=== PATIENT | female | born 1930 | race Caucasian/White ===

== ENCOUNTER 2017-03-10 15:15 | Emergency (ER) | payer MEDICARE, BC ==
[2017-03-10 15:43] VITALS: RESP 16; TEMP 98.3
[2017-03-10] MEDS ORDERED: SODIUM CHLORIDE 0.9% 1,000 ML IV STA (16:21)
--- NOTE | 2017-03-10 16:24 | ED ---
General Adult HPI <Valentino Hoffman - Last Filed: 03/10/17 18:16> - General Source: patient, RN notes reviewed Mode of arrival: ambulatory Limitations: no limitations <Everette Emanuel - Last Filed: 03/10/17 18:19> - General Chief complaint: Upper Respiratory Infection Stated complaint: Coughing with blood Time Seen by Provider: 03/10/17 16:09 - History of Present Illness Initial comments: Patient 86-year-old female who presents emergency room today with chief complaint of hemoptysis times one day. She does admit that late last night laying down in bed reading she began having a slight cough noted that she had some blood-tinged sputum. States there is a dark color and then a hand knitter color. States it happened hand. Times. States she did not sleep very well but was able to fall sleep. She states that she was doing well this morning until approximate 9:30 had another episode of coughing which did produce some blood tinged sputum. They shouldn't admits that she did call her doctor's office and the nurse there advised to come here to the emergency room. Patient states she did not have any other symptoms. She denies taking any medications at home. Patient denies any recent fever, chills, shortness of breath, chest pain, back pain, abdominal pain, nausea or vomiting, numbness or tingling, dysuria or hematuria, constipation or diarrhea, headaches or visual changes, or any other complaints. (Everette Emanuel) - Related Data Home Medications Medication Instructions Recorded Confirmed Multivits-Min/Iron/FA/Lutein 1 tab PO DAILY 03/10/17 03/10/17 [Centrum Silver Women Tablet] Allergies Allergy/AdvReac Type Severity Reaction Status Date / Time amoxicillin Allergy Unknown Verified 03/10/17 16:51 ciprofloxacin [From Cipro] Allergy Unknown Verified 03/10/17 16:51 nitrofurantoin Allergy Unknown Verified 03/10/17 16:51 [From Macrobid] sulfamethoxazole Allergy Unknown Verified 03/10/17 16:51 [From Bactrim] trimethoprim [From Bactrim] Allergy Unknown Verified 03/10/17 16:51 Review of Systems ROS Other: All systems not noted in ROS Statement are negative. <Valentino Hoffman - Last Filed: 03/10/17 18:16> ROS Other: All systems not noted in ROS Statement are negative. <Everette Emanuel - Last Filed: 03/10/17 18:19> ROS Statement: Those systems with pertinent positive or pertinent negative responses have been documented in the HPI. Past Medical History Past Medical History: No Reported History History of Any Multi-Drug Resistant Organisms: None Reported Past Surgical History: Hysterectomy, Tonsillectomy Additional Past Surgical History / Comment(s): cataract removal Past Psychological History: No Psychological Hx Reported Smoking Status: Former smoker Past Alcohol Use History: Occasional Past Drug Use History: None Reported <Everette Emanuel - Last Filed: 03/10/17 18:19> General Exam <Valentino Hoffman - Last Filed: 03/10/17 18:16> Limitations: no limitations <Everette Emanuel - Last Filed: 03/10/17 18:19> - General Exam Comments Initial Comments: General: The patient is awake and alert, in no distress, and does not appear acutely ill. Eye: Pupils are equal, round and reactive to light, extra-ocular movements are intact. No nystagmus. There is normal conjunctiva bilaterally. No signs of icterus. Ears, nose, mouth and throat: There are moist mucous membranes and no oral lesions. Neck: The neck is supple, there is no tenderness or JVD. Cardiovascular: There is a regular rate and rhythm. No murmur, rub or gallop is appreciated. Respiratory: Lungs are clear to auscultation, respirations are non-labored, breath sounds are equal. No wheezes, stridor, rales, or rhonchi. Gastrointestinal: Soft, non-distended, non-tender abdomen without masses or organomegaly noted. There is no rebound or guarding present. No CVA tenderness. Bowel sounds are unremarkable. Musculoskeletal: Normal ROM, no tenderness. Strength 5/5. Sensation intact. Pulses equal bilaterally 2+. Neurological: A&O x 3. CN II-XII intact, There are no obvious motor or sensory deficits. Coordination appears grossly intact. Speech is normal. Skin: Skin is warm and dry and no rashes or lesions are noted. Psychiatric: Cooperative, appropriate mood & affect, normal judgment. (Everette Emanuel) Course <Valentino Hoffman - Last Filed: 03/10/17 18:16> <Everette Emanuel - Last Filed: 03/10/17 18:19> Vital Signs 03/10/17 03/10/17 15:39 16:49 Temperature 98.3 F Pulse Rate 103 H 81 Respiratory 16 16 Rate Blood Pressure 187/106 173/87 O2 Sat by Pulse 96 95 Oximetry - Reevaluation(s) Reevaluation #1: 03/10/17 18:16 I did personally do a [id number] evaluation the patient did discuss findings with her and her family. The x-rays and lab work are unremarkable. Patient does have prior history of episodes of hemoptysis 15 years ago. She related this medication she had used. She denies any current fevers chills nausea vomiting sweats examination of lungs revealed clear lung sounds. Heart regular with no evidence of any murmurs at this time no chest wall tenderness palpation x-rays are negative for acute findings. Patient is referred back to her physician for further evaluation. (Valentino Hoffman) Medical Decision Making - Lab Data Result diagrams: 03/10/17 16:19 03/10/17 16:19 <Valentino Hoffman - Last Filed: 03/10/17 18:16> - Lab Data Result diagrams: 03/10/17 16:19 03/10/17 16:19 <Everette Emanuel - Last Filed: 03/10/17 18:19> - Medical Decision Making Patient reexamined at this time shows no signs of distress. Patient's labs reviewed unremarkable. Negative d-dimer. EKG shows normal sinus rhythm. Patient's labs reviewed and was seen at bedside by attending physician Dr. Hoffman. Patient will be discharged home advised follow-up the family doctor in the next 1-2 days. Advised return if any symptoms increase or worsen or for any other concerns. (Everette Emanuel) - Lab Data Lab Results 03/10/17 03/10/17 03/10/17 Range/Units 16:19 16:19 16:19 WBC 7.5 (3.8-10.6) k/uL RBC 4.96 (3.80-5.40) m/uL Hgb 15.2 (11.4-16.0) gm/dL Hct 45.6 (34.0-46.0) % MCV 92.0 (80.0-100.0) fL MCH 30.6 (25.0-35.0) pg MCHC 33.3 (31.0-37.0) g/dL RDW 14.3 (11.5-15.5) % Plt Count 199 (150-450) k/uL Neutrophils % 74 % Lymphocytes % 15 % Monocytes % 6 % Eosinophils % 1 % Basophils % 1 % Neutrophils # 5.6 (1.3-7.7) k/uL Lymphocytes # 1.1 (1.0-4.8) k/uL Monocytes # 0.5 (0-1.0) k/uL Eosinophils # 0.1 (0-0.7) k/uL Basophils # 0.1 (0-0.2) k/uL PT 10.1 (9.0-12.0) sec INR 1.0 (<1.1) APTT 24.3 (22.0-30.0) sec D-Dimer 0.42 (<0.60) mg/L FEU Sodium 139 (137-145) mmol/L Potassium 4.0 (3.5-5.1) mmol/L Chloride 103 (98-107) mmol/L Carbon Dioxide 25 (22-30) mmol/L Anion Gap 11 mmol/L BUN 19 H (7-17) mg/dL Creatinine 0.80 (0.52-1.04) mg/dL Est GFR (MDRD) Af Amer >60 (>60 ml/min/1.73 sqM) Est GFR (MDRD) Non-Af >60 (>60 ml/min/1.73 sqM) Glucose 102 H (74-99) mg/dL Calcium 10.6 H (8.4-10.2) mg/dL Total Bilirubin 0.6 (0.2-1.3) mg/dL AST 26 (14-36) U/L ALT 30 (9-52) U/L Alkaline Phosphatase 109 (38-126) U/L Total Protein 8.0 (6.3-8.2) g/dL Albumin 4.8 (3.5-5.0) g/dL Urine Color Urine Appearance (Clear) Urine pH (5.0-8.0) Ur Specific Wilson (1.001-1.035) Urine Protein (Negative) Urine Glucose (UA) (Negative) Urine Ketones (Negative) Urine Blood (Negative) Urine Nitrite (Negative) Urine Bilirubin (Negative) Urine Urobilinogen (<2.0) mg/dL Ur Leukocyte Esterase (Negative) Urine RBC (0-5) /hpf 03/10/17 Range/Units 16:19 WBC (3.8-10.6) k/uL RBC (3.80-5.40) m/uL Hgb (11.4-16.0) gm/dL Hct (34.0-46.0) % MCV (80.0-100.0) fL MCH (25.0-35.0) pg MCHC (31.0-37.0) g/dL RDW (11.5-15.5) % Plt Count (150-450) k/uL Neutrophils % % Lymphocytes % % Monocytes % % Eosinophils % % Basophils % % Neutrophils # (1.3-7.7) k/uL Lymphocytes # (1.0-4.8) k/uL Monocytes # (0-1.0) k/uL Eosinophils # (0-0.7) k/uL Basophils # (0-0.2) k/uL PT (9.0-12.0) sec INR (<1.1) APTT (22.0-30.0) sec D-Dimer (<0.60) mg/L FEU Sodium (137-145) mmol/L Potassium (3.5-5.1) mmol/L Chloride (98-107) mmol/L Carbon Dioxide (22-30) mmol/L Anion Gap mmol/L BUN (7-17) mg/dL Creatinine (0.52-1.04) mg/dL Est GFR (MDRD) Af Amer (>60 ml/min/1.73 sqM) Est GFR (MDRD) Non-Af (>60 ml/min/1.73 sqM) Glucose (74-99) mg/dL Calcium (8.4-10.2) mg/dL Total Bilirubin (0.2-1.3) mg/dL AST (14-36) U/L ALT (9-52) U/L Alkaline Phosphatase (38-126) U/L Total Protein (6.3-8.2) g/dL Albumin (3.5-5.0) g/dL Urine Color Light Yellow Urine Appearance Clear (Clear) Urine pH 6.0 (5.0-8.0) Ur Specific Wilson 1.009 (1.001-1.035) Urine Protein Negative (Negative) Urine Glucose (UA) Negative (Negative) Urine Ketones Negative (Negative) Urine Blood Small H (Negative) Urine Nitrite Negative (Negative) Urine Bilirubin Negative (Negative) Urine Urobilinogen <2.0 (<2.0) mg/dL Ur Leukocyte Esterase Negative (Negative) Urine RBC 7 H (0-5) /hpf Disposition <Valentino Hoffman - Last Filed: 03/10/17 18:16> Time of Disposition: 18:19 <Everette Emanuel - Last Filed: 03/10/17 18:19> Clinical Impression: Hemoptysis, Hemoptysis, unspecified Disposition: HOME SELF-CARE Condition: Good Instructions: Hemoptysis (ED) Additional Instructions: Please follow-up the family doctor in the next 1-2 days. Please return to emergency room if any symptoms increase or worsen or for any other concerns as discussed.
[2017-03-10 16:39] LABS: Appearance,Urine Clear (Clear); Basophils # (A) 0.1 k/uL (0-0.2); Basophils % (A) 1 %; Bilirubin,Urine Negative (Negative); CHCM 33.9; Eosinophils # (A) 0.1 k/uL (0-0.7); Eosinophils % (A) 1 %; Glucose,Urine (UA) Negative (Negative); HCT 45.6 % (34.0-46.0); HDW 2.35; HGB 15.2 gm/dL (11.4-16.0); Ketones,Urine Negative (Negative); Leukocyte Esterase,Urine Negative (Negative); Luc # (Auto) 0.21; Luc % (Auto) 3; Lymphocytes # (A) 1.1 k/uL (1.0-4.8); Lymphocytes % (A) 15 %; MCH 30.6 pg (25.0-35.0); MCHC 33.3 g/dL (31.0-37.0); Mean Platelet Volume 8.2; Monocytes # (A) 0.5 k/uL (0-1.0); Monocytes % (A) 6 %; Neutrophils # (A) 5.6 k/uL (1.3-7.7); Neutrophils % (A) 74 %; Nitrite,Urine Negative (Negative); Particle Count 264; Protein,Urine Negative (Negative); RBC 4.96 m/uL (3.80-5.40); RBC,Urine 7 /hpf (0-5); RDW 14.3 % (11.5-15.5); Specific Gravity,Urine 1.009 (1.001-1.035); UA Billing (MACRO vs. MICRO) MICRO; Urobilinogen,Urine <2.0 mg/dL (<2.0); WBC 7.5 k/uL (3.8-10.6); WBC (Perox) 7.63
[2017-03-10 16:51] LABS: ALT 30 U/L (9-52); AST 26 U/L (14-36); Alkaline Phosphatase 109 U/L (38-126); Anion Gap 11 mmol/L; Blood Urea Nitrogen 19 mg/dL (7-17); Calcium 10.6 mg/dL (8.4-10.2); Carbon Dioxide 25 mmol/L (22-30); Chloride 103 mmol/L (98-107); Glucose 102 mg/dL (74-99); Non-African American GFR(MDRD) >60 (>60 ml/min/1.73 sqM); Sodium 139 mmol/L (137-145); Total Bilirubin 0.6 mg/dL (0.2-1.3)
[2017-03-10 16:56] LABS: Partial Thromboplastin Time 24.3 sec (22.0-30.0); Prothrombin Time 10.1 sec (9.0-12.0)
--- NOTE | 2017-03-10 17:08 | XR ---
EXAMINATION TYPE: XR chest 2V DATE OF EXAM: 03/10/2017 5:02 PM COMPARISON: NONE HISTORY: Coughing up blood TECHNIQUE: Frontal and lateral views of the chest are obtained. FINDINGS: Heart is normal. Thoracic aorta is atheromatous. There is slight thickening of the right m inor fissure. There are no hilar masses. There is no pleural effusion. Bones are osteopenic. There ar e chest leads. IMPRESSION: Minimal right-sided pleural thickening. Normal heart. No pulmonary consolidation or hear t failure.
[2017-03-10 18:34] VITALS: BP 179/79; PULSE 74
== END 2017-03-10 18:34 | disposition home or self-care (01) ==
LOC: EC 15:15
DX: R04.2 Hemoptysis (principal); Z87.891 Personal history of nicotine dependence; Z79.899 Other long term (current) drug therapy; Z88.0 Allergy status to penicillin; Z88.1 Allergy status to other antibiotic agents; Z88.2 Allergy status to sulfonamides; Z88.8 Allergy status to other drugs, medicaments and biological substances
CPT/HCPCS: 36415; 71020; 80053; 81001; 85025; 85379; 85610; 85730; 93005; 96360; 96361; 99283

== ENCOUNTER → 2017-04-04 | Outpatient (CLI) | payer MEDICARE, BC ==
--- NOTE | 2017-04-04 12:06 | ECHOS ---
DATE OF SERVICE: 04/04/2017 AGE: 86Y SEX: F HT: 64" WT: 120 lbs. Protocol Mitchell: X Others: Stress Echo Stage: 1 Dur. of Exercise: 2:30 *Heart Rate Blood Pressure *Rest: 103 Rest: 143/78 * *Max. Achieved: 131 Maximum BP: 171/95 85% PMHR: 116 100% PMHR: 136 *METS: 4.0 INDICATIONS: Chest pain. MEDICATIONS: - STRESS DATA: Pretesting physical examination showed a heart rate of 103, pressure is 143/78 mmHg. Baseline EKG showed sinus rhythm with left anterior fascicular block. The patient exercised on the treadmill according to Mitchell protocol for a total of 2 minutes and 30 seconds and achieved 4 of METs with max heart rate was 131, which is about 96% of maximum predicted heart rate. Maximum blood pressure was 171/95 mmHg. Clinically, the patient did not have any symptoms of chest pain or discomfort during the testing or in recovery, but she developed some shortness of breath with exercise. The EKG did not show any evidence of ST or T-wave abnormalities consistent of ischemia or meeting the criteria for ischemia. ECHOCARDIOGRAM IMAGES: On the echocardiogram images from parasternal long axis view, parasternal short axis view, apical 4 chamber view, and apical 2 chamber views were obtained at the baseline images, at the peak of the heart rate, as well as on recovery. The echocardiogram images showed good augmentation in the left ventricular systolic function without any obvious wall motion abnormalities consistent with ischemia. CONCLUSION: 1. Poor exercise capacity. 2. Normal EKG in response to exercise. 3. Normal echocardiogram in response to exercise as well.
== END | disposition home or self-care (01) ==
LOC: RADNMMAIN 09:43
PROVIDERS: ATTEND Internal Medicine
DX: R07.9 Chest pain, unspecified (principal)
CPT/HCPCS: 93017; 93350

== ENCOUNTER 2017-04-28 19:44 | Emergency (ER) | payer MEDICARE, BC ==
--- NOTE | 2017-04-28 20:18 | ED ---
Chest Pain HPI - General Source: patient Mode of arrival: ambulatory Limitations: no limitations - History of Present Illness MD Complaint: chest pain Onset/Timin -: days(s) Onset: during rest Pain Location: left chest Pain Radiation: none Severity: moderate Quality: heaviness Consistency: now resolved Improves With: nothing Worsens With: nothing Treatments Prior to Arrival: none <Greg Mann - Last Filed: 04/28/17 21:36> <Alexander Canela - Last Filed: 04/28/17 23:32> - General Chief Complaint: Chest Pain Stated Complaint: Chest Pain Time Seen by Provider: 04/28/17 20:09 - History of Present Illness Initial Comments: This patient is an 86-year-old woman who presents to have evaluation for left- sided chest pain. The pain started yesterday in the morning while she was reading the newspaper. She states it lasted for some time she is not sure exactly how long and then resolved. She had another episode that came on at night and then also resolved. She states that she had a fair amount of anxiety related to this and was not able to sleep over the course of last night. The patient states that she is not having any symptoms at the moment, everything has resolved after she has arrived here. (Greg Mann) - Related Data Home Medications Medication Instructions Recorded Confirmed Multivitamins, Thera [Multivitamin 1 tab PO DAILY 04/28/17 04/28/17 (formulary)] Allergies Allergy/AdvReac Type Severity Reaction Status Date / Time amoxicillin Allergy Unknown Verified 04/28/17 19:59 ciprofloxacin [From Cipro] Allergy Unknown Verified 04/28/17 19:59 nitrofurantoin Allergy Unknown Verified 04/28/17 19:59 [From Macrobid] sulfamethoxazole Allergy Unknown Verified 04/28/17 19:59 [From Bactrim] trimethoprim [From Bactrim] Allergy Unknown Verified 04/28/17 19:59 alendronate sodium AdvReac Coughs up Verified 04/28/17 20:21 [From Fosamax] Blood calcitonin [From FORTICAL] AdvReac Coughs up Verified 04/28/17 20:21 Blood Review of Systems ROS Other: All systems not noted in ROS Statement are negative. Constitutional: Denies: fever, chills Respiratory: Denies: cough, dyspnea Cardiovascular: Reports: chest pain, palpitations. Denies: dyspnea on exertion , orthopnea, edema, syncope Gastrointestinal: Denies: abdominal pain, nausea, vomiting Genitourinary: Denies: dysuria, hematuria Musculoskeletal: Denies: back pain Skin: Denies: rash Neurological: Denies: headache, weakness, numbness <Greg Mann - Last Filed: 04/28/17 21:36> ROS Other: All systems not noted in ROS Statement are negative. <Alexander Canela - Last Filed: 04/28/17 23:32> ROS Statement: Those systems with pertinent positive or pertinent negative responses have been documented in the HPI. EKG Findings - EKG Results: EKG: interpreted by ERMD, sinus rhythm (Rate approximately 81 bpm), normal QRS ( Normal) - Blocks, [place], Hypertrophy, ST Abn: QRS axis and voltage: left axis deviation (-30 to -90) Repolarization changes or abnormalities: nonspecific abnormality, ST segment, and/or T wave <Greg Mann - Last Filed: 04/28/17 21:36> Past Medical History Past Medical History: No Reported History Additional Past Medical History / Comment(s): Recent stress test March 2017, WNL History of Any Multi-Drug Resistant Organisms: None Reported Past Surgical History: Hysterectomy, Tonsillectomy Additional Past Surgical History / Comment(s): cataract removal Past Psychological History: No Psychological Hx Reported Smoking Status: Former smoker Past Alcohol Use History: Occasional Past Drug Use History: None Reported <Greg Mann - Last Filed: 04/28/17 21:36> General Exam Limitations: no limitations General appearance: alert, in no apparent distress Head exam: Present: atraumatic, normocephalic Eye exam: Present: normal appearance. Absent: scleral icterus, conjunctival injection ENT exam: Present: normal oropharynx Neck exam: Present: normal inspection, full ROM Respiratory exam: Present: normal lung sounds bilaterally. Absent: respiratory distress, wheezes, rales, rhonchi, stridor Cardiovascular Exam: Present: regular rate, normal rhythm, clicks. Absent: diastolic murmur, rubs, gallop GI/Abdominal exam: Present: soft. Absent: distended, tenderness, guarding, rebound, mass Extremities exam: Present: normal inspection, normal capillary refill. Absent: pedal edema, calf tenderness Back exam: Present: normal inspection. Absent: CVA tenderness (R), CVA tenderness (L) Neurological exam: Present: alert Skin exam: Present: warm, dry, intact, normal color. Absent: rash, cyanosis, diaphoretic, erythema, petechiae, pallor, mottled <Greg Mann - Last Filed: 04/28/17 21:36> Course <Greg Mann - Last Filed: 04/28/17 21:36> <Alexander Canela - Last Filed: 04/28/17 23:32> Vital Signs 04/28/17 04/28/17 04/28/17 19:50 20:32 21:11 Temperature 98.1 F 98.4 F Pulse Rate 95 79 86 Respiratory 18 16 16 Rate Blood Pressure 183/114 188/94 168/101 O2 Sat by Pulse 94 L 97 95 Oximetry 04/28/17 04/28/17 04/28/17 21:47 22:14 23:03 Temperature Pulse Rate 85 74 75 Respiratory 16 16 16 Rate Blood Pressure 166/88 176/86 141/71 O2 Sat by Pulse 95 95 94 L Oximetry 04/28/17 23:17 Temperature Pulse Rate 88 Respiratory 16 Rate Blood Pressure 118/67 O2 Sat by Pulse 95 Oximetry - Reevaluation(s) Reevaluation #1: 04/28/17 23:28 Chest x-ray questions poorly defined infiltrate right upper lobe. Patient was endorsed by Dr. Hope with anticipation of discharge following Ativan. He did discuss case with Dr. Pérez who did recommend discharge. Patient reevaluated and symptom-free. Patient is requesting discharge home. Patient updated on results and need for close follow-up. Patient advised to follow-up with Dr. Pérez tomorrow. 04/28/17 23:30 Patient reportedly had a recent negative stress test just days ago. (Alexander Canela) Disposition <[email or web address] - Last Filed: 04/28/17 21:36> <Alexander Canela - Last Filed: 04/28/17 23:32> Clinical Impression: Chest pain Disposition: HOME SELF-CARE Condition: Stable Instructions: Chest Pain (ED) Additional Instructions: Please follow-up tomorrow with Dr. Pérez. Please have Dr. Pérez review chest x- ray results returned return for chest pain, worsening or changing symptoms or other concerns. Referrals: Rico Pérez MD [Primary Care Provider] - 1-2 days
[2017-04-28 20:33] VITALS: RESP 16
[2017-04-28 20:45] LABS: Basophils % (A) 0 %; CH 30.6; CHCM 34.3; Eosinophils # (A) 0.1 k/uL (0-0.7); Eosinophils % (A) 1 %; HCT 42.2 % (34.0-46.0); HDW 2.45; HGB 15.1 gm/dL (11.4-16.0); Luc # (Auto) 0.29; Luc % (Auto) 4; Lymphocytes # (A) 1.7 k/uL (1.0-4.8); Lymphocytes % (A) 21 %; MCH 32.1 pg (25.0-35.0); MCHC 35.8 g/dL (31.0-37.0); MCV 89.7 fL (80.0-100.0); Mean Platelet Volume 7.4; Monocytes # (A) 0.5 k/uL (0-1.0); Monocytes % (A) 7 %; Neutrophils # (A) 5.4 k/uL (1.3-7.7); Neutrophils % (A) 67 %; RBC 4.71 m/uL (3.80-5.40); RDW 13.9 % (11.5-15.5); WBC (Perox) 8.26
--- NOTE | 2017-04-28 20:53 | XR ---
EXAMINATION TYPE: XR chest 1V portable DATE OF EXAM: 04/28/2017 COMPARISON: 03/10/2017 HISTORY: Chest pain TECHNIQUE: Single frontal view of the chest is obtained. FINDINGS: Heart is normal. Thoracic aorta is atheromatous. There is a mild infiltrate in the lateral right upper lobe. There is mild blunting of left costophrenic angle. There are chest leads. IMPRESSION: There is evidence of a new poorly defined infiltrate in the lateral right upper lobe com pared to last exam. COPD. Pleural diaphragmatic scarring at the lateral left lung base appears worse than last exam.
[2017-04-28 20:55] LABS: ALT 29 U/L (9-52); AST 25 U/L (14-36); Alkaline Phosphatase 107 U/L (38-126); Anion Gap 14 mmol/L; Blood Urea Nitrogen 17 mg/dL (7-17); Calcium 10.4 mg/dL (8.4-10.2); Carbon Dioxide 23 mmol/L (22-30); Chloride 103 mmol/L (98-107); Glucose 92 mg/dL (74-99); Non-African American GFR(MDRD) >60 (>60 ml/min/1.73 sqM); Potassium 3.9 mmol/L (3.5-5.1); Sodium 140 mmol/L (137-145); Total Bilirubin 0.5 mg/dL (0.2-1.3); Total Protein 7.1 g/dL (6.3-8.2)
[2017-04-28 21:00] LABS: Partial Thromboplastin Time 24.3 sec (22.0-30.0)
[2017-04-28 21:02] LABS: Prothrombin Time 10.5 sec (9.0-12.0)
[2017-04-28 21:09] LABS: Creatine Kinase 77 U/L (30-135)
[2017-04-28 21:22] LABS: Creatine Kinase MB 1.6 ng/mL (0.0-2.4); Troponin I <0.012 ng/mL (0.000-0.034)
[2017-04-28] MEDS ORDERED: cloNIDine HCL 0.1 MG TAB PO STA (21:36)
[2017-04-28] MEDS ORDERED: LORazepam 2 MG/ML SYRINGE IV STA (22:21)
[2017-04-28 23:47] VITALS: BP 118/70; PULSE 75; TEMP 98.2
== END 2017-04-28 23:46 | disposition home or self-care (01) ==
LOC: EC 19:44
DX: R07.9 Chest pain, unspecified (principal); Z87.891 Personal history of nicotine dependence; Z79.899 Other long term (current) drug therapy; Z88.0 Allergy status to penicillin; Z88.1 Allergy status to other antibiotic agents; Z88.8 Allergy status to other drugs, medicaments and biological substances
CPT/HCPCS: 36415; 93005; 85379; 80053; 82550; 82553; 83735; 84484; 85025; 85610; 85730; 71010; 99285; 96374; J2060

== ENCOUNTER → 2017-08-12 | Outpatient (CLI) | payer MEDICARE, BC ==
[2017-08-12 12:55] LABS: Blood Urea Nitrogen 18 mg/dL (7-17); Non-African American GFR(MDRD) >60 (>60 ml/min/1.73 sqM)
--- NOTE | 2017-08-12 14:19 | CT ---
EXAMINATION TYPE: CT chest w con DATE OF EXAM: 08/12/2017 COMPARISON: NONE HISTORY: Hemoptysis CT DLP: 533 mGycm Automated exposure control for dose reduction was used. CONTRAST: CT scan of the chest is performed with IV Contrast, patient injected with 100 mL of Omnipaque 300. FINDINGS: LUNGS: Ill-defined nodular densities are seen within the right upper lobe, right middle lobe right lo wer lobe as well as the left upper lobe. There are associated areas of bronchial wall thickening and groundglass density. The findings may reflect atypical infectious pneumonitis such as fungal or TB ty pe infections. Correlate clinically. Consider transbronchial biopsy. No evidence for distinct mass at this time. No focal consolidation. Scattered areas of pleural thickening. MEDIASTINUM: There are no greater than 1 cm hilar or mediastinal lymph nodes. No pericardial effusi on is seen. Thoracic aorta is of normal caliber. The heart is not enlarged. UPPER ABDOMEN: Bilateral adrenal nodules measuring up to 1 cm may reflect adenomas. Simple cysts with in the liver adjacent to gallbladder fossa. Multiple splenic granulomas. OTHER: No additional significant abnormality is seen. IMPRESSION: 1. Ill-defined nodular densities within both lungs as discussed above as well as bronchial wall thick ening could reflect remote granulomatous disease. Other atypical infections should also be considered . If symptoms persist consider transbronchial biopsy
== END | disposition home or self-care (01) ==
LOC: RADCTMAIN 12:11
PROVIDERS: ATTEND Internal Medicine
DX: J98.09 Other diseases of bronchus, not elsewhere classified (principal); R91.8 Other nonspecific abnormal finding of lung field; R04.2 Hemoptysis
CPT/HCPCS: 82565; 84520; 71260; 36415; Q9967

== ENCOUNTER → 2018-05-11 | Outpatient (CLI) | payer MEDICARE, BC ==
--- NOTE | 2018-05-11 14:30 | CT ---
EXAMINATION TYPE: CT chest w con DATE OF EXAM: 05/11/2018 COMPARISON: 08/12/2017 HISTORY: 87-year-old female Follow up to lung nodules TECHNIQUE: Contiguous axial scanning of the chest after the administration of 100 mL of Isovue 300. Coronal/sagittal reconstructions performed. CT DLP: 153mGycm. Automatic exposure control utilized for a dose reduction. FINDINGS: Heart is normal size without pericardial effusion. Mild coronary vessel calcifications are present in remarkable for coronary artery disease. Aorta is normal caliber with conventional arch vessel branching anatomy. No thoracic lymphadenopathy. Strandy areas of scarring are redemonstrated within the lungs. There is some ill-defined small irregu lar nodular densities in the bilateral mid lungs, upper lobes and some mild tree-in-bud nodularity wi th bronchiectasis in the right middle lobe and inferior lingula relatively similar to prior exam. Devan cified granuloma peripheral right lower lobe axial image 36. A 4 mm posterior right lower lobe pulmonary nodule axial image 35 is new. Calcified granulomas in the spleen. Partially visualized left adrenal nodule measuring at least 1.1 c m likely stable. 9 mm right adrenal nodule is unchanged. Bones: No osseous destructive process. IMPRESSION: 1. Redemonstrated scattered nodular and irregular densities in the upper lobes at the midlung level a s well as tree-in-bud nodularity and bronchiectasis at the anterior lung bases. Correlate for indolen t atypical infection such as with DARIUS. 2. A 4 mm posterior right lower lobe pulmonary nodule is new. Six-month follow-up recommended. 3. Nodules in the bilateral adrenal glands. The nodule on the right measures 9 mm and is stable. The nodule on the left is partially visualized measuring at least 1.1 cm and is probably stable as well. Adrenal adenomas are statistically the most likely etiology.
== END | disposition home or self-care (01) ==
LOC: RADCTMAIN 11:53
PROVIDERS: ATTEND Internal Medicine Critical Care Medicine
DX: J47.9 Bronchiectasis, uncomplicated (principal); R91.8 Other nonspecific abnormal finding of lung field; Z88.1 Allergy status to other antibiotic agents; Z88.2 Allergy status to sulfonamides; Z88.7 Allergy status to serum and vaccine
CPT/HCPCS: 82565; 84520; 71260; 36415; Q9967

== ENCOUNTER → 2018-10-28 | Outpatient (CLI) | payer MEDICARE, BC ==
--- NOTE | 2018-10-29 14:42 | MM ---
Reason for exam: screening (asymptomatic). Last mammogram was performed 2 years and 2 months ago. History: Patient is postmenopausal and has history of endometrial cancer at age 47. Physical Findings: A clinical breast exam by your physician is recommended on an annual basis and results should be correlated with mammographic findings. MG Screening Mammo w CAD Bilateral CC and MLO view(s) were taken. Prior study comparison: September 06, 2016, bilateral MG screening mammo w CAD. August 25, 2015, bilateral MG screening mammo w CAD. The breast tissue is heterogeneously dense. This may lower the sensitivity of mammography. There is no discrete abnormality. No significant changes when compared with prior studies. ASSESSMENT: Negative, BI-RAD 1 RECOMMENDATION: Routine screening mammogram of both breasts in 1 year.
== END | disposition home or self-care (01) ==
LOC: RADMAMWWP 14:45
PROVIDERS: ATTEND Internal Medicine
DX: Z12.31 Encounter for screening mammogram for malignant neoplasm of breast (principal)
CPT/HCPCS: 77067

== ENCOUNTER 2019-03-03 07:09 | Emergency (ER) | payer MEDICARE, BC ==
[2019-03-03 07:23] VITALS: RESP 18
--- NOTE | 2019-03-03 08:04 | XR ---
EXAMINATION TYPE: XR elbow complete RT DATE OF EXAM: 03/03/2019 CLINICAL HISTORY: Right elbow pain. TECHNIQUE: Frontal, lateral and oblique images of the right elbow are obtained. COMPARISON: None FINDINGS: Exam note is slightly suboptimal due to overlying clothing material and demineralization a s well as incomplete extension. There is no acute fracture/dislocation evident in the right elbow. N o abnormal fat pad signs are seen. Moderate spurring is present. IMPRESSION: As above.
--- NOTE | 2019-03-03 08:13 | ED ---
General Adult HPI - General Chief complaint: Extremity Injury, Upper Stated complaint: Rt Arm Pain Time Seen by Provider: 03/03/19 07:24 Source: patient - History of Present Illness Initial comments: Patient is an 88-year-old female presenting to the emergency department with right arm pain for 1 week. Patient states the pain started about a week ago in her right hand with swelling but has since resolved and now the pain has moved to elbow. Patient reports the pain is dull without radiation to the proximal or distal aspect of arm. Patient reports resting the arm alleviates the pain and it is exacerbated with movement. Patient states she has difficulty doing her daily activities. Patient states she took 4 baby aspirin for the pain with minimal improvement. Patient denies any numbness or tingling. Patient reports having difficulty falling and staying asleep due to pain. - Related Data Home Medications Medication Instructions Recorded Confirmed Aspirin EC [Ecotrin Low Dose] 324 mg PO DAILY PRN 03/03/19 03/03/19 Devan/D3/Mag11/Zinc/New Home Sales Consultant/Otoniel/Bor 1 tab PO DAILY 03/03/19 03/03/19 [Caltrate 600+D Plus Tablet] Multivit-Min/FA/Lycopen/Lutein 1 tab PO DAILY 03/03/19 03/03/19 [Centrum Silver Tablet] Previous Rx's Medication Instructions Recorded Ibuprofen 400 mg PO Q6HR #28 tablet 03/03/19 Allergies Allergy/AdvReac Type Severity Reaction Status Date / Time amoxicillin Allergy Unknown Verified 03/03/19 07:41 ciprofloxacin [From Cipro] Allergy Unknown Verified 03/03/19 07:41 nitrofurantoin Allergy Unknown Verified 03/03/19 07:41 [From Macrobid] sulfamethoxazole Allergy Unknown Verified 03/03/19 07:41 [From Bactrim] trimethoprim [From Bactrim] Allergy Unknown Verified 03/03/19 07:41 alendronate sodium AdvReac Coughs up Verified 03/03/19 07:41 [From Fosamax] Blood calcitonin [From FORTICAL] AdvReac Coughs up Verified 03/03/19 07:41 Blood Review of Systems ROS Statement: Those systems with pertinent positive or pertinent negative responses have been documented in the HPI. ROS Other: All systems not noted in ROS Statement are negative. Past Medical History Past Medical History: No Reported History Additional Past Medical History / Comment(s): Recent stress test March 2017, WNL History of Any Multi-Drug Resistant Organisms: None Reported Past Surgical History: Hysterectomy, Tonsillectomy Additional Past Surgical History / Comment(s): cataract removal Past Psychological History: No Psychological Hx Reported Smoking Status: Former smoker Past Alcohol Use History: Occasional Past Drug Use History: None Reported General Exam Limitations: no limitations General appearance: alert, in no apparent distress Head exam: Present: atraumatic, normocephalic, normal inspection Eye exam: Present: normal appearance, PERRL, EOMI. Absent: scleral icterus, conjunctival injection ENT exam: Present: normal exam Neck exam: Present: normal inspection Respiratory exam: Present: normal lung sounds bilaterally. Absent: wheezes, rales, rhonchi, stridor Cardiovascular Exam: Present: regular rate, normal rhythm, normal heart sounds Right General: Present: normal inspection Shoulder Exam: Present: normal inspection. Absent: tenderness, swelling Upper Arm exam: Present: normal inspection, full ROM Elbow exam: Present: tenderness (Pain or lateral aspect of the elbow.). Absent: full ROM (Pain with flexion and extension.), swelling, abrasion, ecchymosis, deformity, crepitus Forearm Wrist exam: Present: normal inspection, full ROM. Absent: tenderness over anatomical snuff box Hand Wrist exam: Present: full ROM (Limited range of motion with wrist flexion and extension). Absent: tenderness, swelling Vascular: Present: normal capillary refill, radial pulse. Absent: vascular compromise, Pallo Neurological exam: Present: alert, oriented X3 Psychiatric exam: Present: normal affect, normal mood Skin exam: Present: warm Course Vital Signs 03/03/19 07:20 Temperature 99.0 F Pulse Rate 85 Respiratory 18 Rate Blood Pressure 145/72 O2 Sat by Pulse 96 Oximetry Medical Decision Making - Medical Decision Making Patient is a 88-year-old female presenting to the emergency department with right arm pain. X-ray obtained of the right elbow was unremarkable. Dave wrap was placed in right arm. Patient was prescribed Ibuprofen 400 every 6 hrs for 7 days. Patient advised to keep arm elevated as needed. Patient advised to follow with primary care. Patient advised to return to emergency department if symptoms worsen. Case discussed with physician. Disposition Clinical Impression: Elbow sprain Disposition: HOME SELF-CARE Condition: Stable Instructions (If sedation given, give patient instructions): Elbow Sprain (ED) Additional Instructions: Please use ibuprofen for pain and inflammation as needed. Please follow up with primary care and obtain a referral for physical therapy if symptoms persist. Please return to emergency department if symptoms worsen. Is patient prescribed a controlled substance at d/c from ED?: No Referrals: Rico Pérez MD [Primary Care Provider] - 1-2 days Time of Disposition: 09:02
[2019-03-03 09:18] VITALS: BP 130/70; PULSE 77; TEMP 98.6
== END 2019-03-03 09:00 | disposition home or self-care (01) ==
LOC: EC 07:09
DX: S53.401A Unspecified sprain of right elbow, initial encounter (principal); Z87.891 Personal history of nicotine dependence; Z79.899 Other long term (current) drug therapy; Z88.0 Allergy status to penicillin; Z88.1 Allergy status to other antibiotic agents; Z88.2 Allergy status to sulfonamides; Z88.8 Allergy status to other drugs, medicaments and biological substances
CPT/HCPCS: 99283

== ENCOUNTER → 2019-03-11 | Outpatient (CLI) | payer MEDICARE, BC ==
--- NOTE | 2019-03-11 16:03 | CT ---
EXAMINATION TYPE: CT chest w con DATE OF EXAM: 03/11/2019 COMPARISON: X-ray 02/19/2019, CT scan 05/11/2018 HISTORY: Abnormal previous lung exam. CT DLP: 372 mGycm Automated exposure control for dose reduction was used. CONTRAST: CT scan of the chest is performed with IV Contrast, patient injected with 100ml mL of Isovue 300. FINDINGS: Heart is normal size without pericardial effusion. Mild coronary vessel calcifications are present in remarkable for coronary artery disease. Aorta is normal caliber with conventional arch vessel branch ing anatomy. No thoracic lymphadenopathy. Strandy areas of scarring are redemonstrated within the lungs. There is some ill-defined small irregu lar nodular densities in the bilateral mid lungs, upper lobes and some mild tree-in-bud nodularity wi th bronchiectasis in the right middle lobe and inferior lingula relatively similar to prior exam. Devan cified granuloma peripheral right lower lobe. A 4 mm posterior right lower lobe pulmonary nodule note d on previous exam has resolved. There is a new 7 mm nodule right lung apex on axial image 19. On axi al image 35 is a 2 mm nodule which is retrospectively stable. Additional 2 mm nodule axial image 34 r ight upper lobe is stable. Additional punctate 1 mm nodules immediately adjacent with tree-in-bud pat tern bilaterally in the anterior segments are stable. This is a nonspecific finding can be seen with inflammatory or neoplastic processes. Localized bronchiectasis involving the anterior segment of the right upper lobe and left upper lobe i s stable. Calcified granulomas in the spleen. Partially visualized left adrenal nodule measuring at least 1.1 c m likely stable. 9 mm right adrenal nodule is unchanged. Bilateral thyroid nodules are seen. Bones: No osseous destructive process. IMPRESSION: 1. Redemonstrated scattered nodular and irregular densities in the upper lobes at the midlung level a s well as tree-in-bud nodularity and bronchiectasis at the anterior lung bases. Correlate for indolen t atypical infection such as with DARIUS. 2. A 4 mm posterior right lower lobe pulmonary nodule is no longer identified. There is a new 7 mm ri ght upper lobe pulmonary nodule for which a three-month follow- up CT scan or PET/CT is recommended. 3. Nodules in the bilateral adrenal glands. The nodule on the right measures 9 mm and is stable. The nodule on the left is partially visualized measuring at least 1.1 cm and is probably stable as well. Adrenal adenomas are statistically the most likely etiology. 4. Bilateral thyroid nodules. 5. Stable bilateral tree-in-bud pattern which can be seen with a number of etiologies including infla mmatory conditions such as granulomatous disease. Correlate clinically. Findings are similar to the p rior exam.
== END | disposition home or self-care (01) ==
LOC: RADCTMAIN 14:09
PROVIDERS: ATTEND Internal Medicine Critical Care Medicine
DX: J47.9 Bronchiectasis, uncomplicated (principal); R91.8 Other nonspecific abnormal finding of lung field; E04.2 Nontoxic multinodular goiter
CPT/HCPCS: 82565; 84520; 71260; 36415; Q9967

== ENCOUNTER → 2019-10-22 | Day surgery (SDC) | payer MEDICARE, BC ==
[2019-10-20 13:56] VITALS: BMI 21.4
[~2019-10-22] MED LIST: ALBUTEROL NEB (CONC) 2.5 MG/0.5 ML INHALATION ONE; ATROPINE SULFATE 0.4 MG/ML 1 ML VIAL IM ONE; LACTATED RINGERS 1,000 ML IV ONE; LACTATED RINGERS 1,000 ML IV SCH; LIDOCAINE 1% INJ 10MG/ML (20 ML MDV) ONE; LIDOCAINE 2% (PF) 20 MG/ML 5 ML VIAL INHALATION ONE; LIDOCAINE 2% INJ 20 MG/ML INTRATRACH ONE; LIDOCAINE VISCOUS 300 MG/15 ML CUP MUCOUS MEM ONE; PROPOFOL 10 MG/ML 20 ML VIAL IV ONE; SODIUM CHLORIDE 0.9% 1,000 ML IV SCH
[2019-10-22 11:43] VITALS: TEMP 97.8
--- NOTE | 2019-10-22 13:13 | P.PCN ---
Date of Procedure: 10/22/19 Preoperative Diagnosis: Bronchiectasis, hemoptysis Postoperative Diagnosis: Bronchiectasis, hemoptysis Procedure(s) Performed: Flexible bronchoscopy, airway inspection, bronchioloalveolar lavage of the right middle lobe Anesthesia: MAC Surgeon: Florence Ang Web Press Operator Helper Offset #1: Julissa Cordero Estimated Blood Loss (ml): 0 Pathology: other Condition: stable Disposition: same day Operative Findings: This is a 89-year-old female patient was having episodes of hemoptysis. She has an abnormal CAT scan that showed some moderate infiltration consistent. Most of the abnormalities were in the left lingula and the right middle lobe and there was a concern for an atypical mycobacterium infection and for that reason the bronchoscopy and the bronchioloalveolar lavage was done This procedure was done under conscious sedation. Anesthetic agents was adminis tered by anesthesia the bedside. After achieving adequate sedation, the flexible bronchoscope was inserted to the left nostril. The flexible scope was passed into the posterior oropharynx and larynx and then the epiglottis and vocal cords and arytenoids and the vallecula were all inspected. Doppler airway structures were all within normal limits. Vocal cords and functional and symmetrical without any lesions or abnormalities identified. A total of 2 mL of 1% lidocaine was applied to the vocal cords and following that the bronchoscope was advanced into the upper trachea. Examination of the airway was done including the trachea, bilateral mainstem bronchi, right upper lobe bronchus, bronchus intermedius, right middle lobe bronchus, right lower lobe bronchus, left upper lobe bronchus, left lower lobe bronchus, along with various segments and subsegments. There was some loose bloody respiratory secretions retained within the airway specially in the bronchus intermedius and the right middle lobe and some in the lingula. No endobronchial tumors or lesions or abnormalities noted. The bronchial mucosa was within normal limits. The rest or secretions were suctioned out. The bronchoscope was wedged into the medial segment of the right middle lobe and the bronchioloalveolar lavage was done. A total of 100 mL of fluid was infused and a total of 30 mL of bloody aspirate was obtained. The procedure was completed. The airway suctioning was done. Bronchoscope was removed and the patient was transferred recovery in stable condition. No complications. The BAL will be sent for microbial cultures and analysis. We'll continue to follow.
[2019-10-22 13:17] VITALS: RESP 16
[2019-10-22 13:40] VITALS: BP 162/93; PULSE 79
== END | disposition home or self-care (01) ==
LOC: ORWHC2ENDO 11:27
PROVIDERS: ATTEND Internal Medicine Critical Care Medicine
DX: J42 Unspecified chronic bronchitis (principal); R04.2 Hemoptysis; Z87.891 Personal history of nicotine dependence; Z98.49 Cataract extraction status, unspecified eye; E78.5 Hyperlipidemia, unspecified; M81.0 Age-related osteoporosis without current pathological fracture; Z79.899 Other long term (current) drug therapy; Z88.0 Allergy status to penicillin; Z88.2 Allergy status to sulfonamides; Z88.7 Allergy status to serum and vaccine; Z88.8 Allergy status to other drugs, medicaments and biological substances; Z88.1 Allergy status to other antibiotic agents
CPT/HCPCS: 94640; 87798 ×3; 87496; 87498; 87529; 88108; 88305; 87252; 87502; 87634; 87070; 87205; 87116; 87102; 87206; 31624; J2001 ×3; J2704